=== PATIENT | female | born 1980 | race African-American/Black ===

== ENCOUNTER 2020-11-24 11:51 | Emergency (ER) | payer OTHER ==
[~2020-11-24] VITALS: Ht 162.6 cm; Wt 91.0 kg
[2020-11-24 12:20] LABS: BASOPHILS % 0.5 % (0.0-2.0); EOSINOPHILS % 3.5 % (0.0-5.0); HEMATOCRIT. 35.1 % (36.0-48.0); HEMOGLOBIN. 11.7 g/dL (12.0-16.0); LYMPHOCYTES % 39.3 % (20.0-50.0); MEAN CORPUSCULAR HEMOGLOBIN 25.9 pg (28.0-32.0); MEAN PLATELET VOLUME 9.9 fl (7.4-10.4); MONOCYTES % 6.4 % (2.0-8.0); NEUTROPHILS % 50.3 % (40.0-76.0); PLATELET 254 x1000/uL (130-400); RED CELL DISTRIBUTION WIDTH 14.1 % (11.6-14.6)
[2020-11-24 12:26] LABS: CHLORIDE 108 mEq/L (98-107)
[2020-11-24 12:34] LABS: HCG SCREEN NEGATIVE
[2020-11-24 12:40] LABS: D-DIMER < 0.19 mg/L FEU (<0.50); PARTIAL THROMBOPLASTIN TIME 26.2 sec (23.4-31.0); PROTHROMBIN TIME 10.5 sec (9.6-11.0)
[2020-11-24] MEDS ORDERED: ASPIRIN 325MG EC TABLET PO ONE (14:00)
[2020-11-24 15:32] VITALS: BP 136/95
== END 2020-11-24 16:35 | disposition short-term general hospital (02) ==
LOC: ER 11:51 → CANBEDREQ 16:20 → ER 16:35
DX: G45.9 Transient cerebral ischemic attack, unspecified (principal); I10 Essential (primary) hypertension; E11.9 Type 2 diabetes mellitus without complications; R07.89 Other chest pain; J45.909 Unspecified asthma, uncomplicated; Z98.890 Other specified postprocedural states
CPT/HCPCS: 36415; 71045; 80053; 83880; 84443; 84484; 84703; 85025; 85379; 93005; 99285